=== PATIENT | female | born 1940 | race Caucasian/White ===

== ENCOUNTER 2019-10-28 12:41 | Emergency (ER) | payer MEDICARE, OTHER ==
[2019-10-28] MEDS ORDERED: Ketorolac Tromethamine 30 MG/ML VIAL ONE (13:26)
[2019-10-28 13:35] LABS: #Lymphocytes 1.2 thou/uL (1.20-3.40); #Monocytes 0.3 thou/uL (0.11-0.59); #Neutrophils 5.5 thou/uL (1.40-6.50); %Basophils 0.3 % (0.0-1.0); %Eosinophils 0.5 % (0.0-10.0); %Lymphocytes 17.1 % (21.0-51.0); %Monocytes 4.7 % (0.0-10.0); %Neutrophils 77.3 % (42.0-75.0); Hemoglobin 11.1 g/dL (12.0-16.0); Mean Corpuscular HGB CONC 32.9 g/dL (32.0-36.0); Mean Corpuscular Hemoglobin 30.6 pg (27.0-31.0); Mean Platelet Volume 8.5 fL (7.4-10.4); Platelet Count 225 thou/uL (130-400); RBC Distribution Width 12.3 % (11.5-14.5); Red Blood Cell (RBC) Count 3.62 mill/uL (4.20-5.40); White Blood Cell (WBC) Count 7.1 thou/uL (4.8-10.8)
--- NOTE | 2019-10-28 13:43 | CT ---
CT Stone Protocol 10/28/2019 1:03 PM HISTORY: Right-sided flank pain and nausea. COMPARISON: 10/19/2019 Technique: Multiple contiguous axial CT images are obtained through the abdomen and pelvis without IV contrast. Coronal reformats are provided. FINDINGS: This examination is limited for the evaluation of solid organs and vascular structures due to the lac k of intravenous contrast. Lower Chest: Bibasilar atelectasis is present. Abdomen: Liver: Grossly normal non-enhanced CT appearance. Gallbladder: Within normal limits for CT imaging. Pancreas: Grossly normal nonenhanced CT appearance. Spleen: Grossly normal nonenhanced CT appearance. Adrenals: Grossly normal nonenhanced CT appearance. Kidneys: There is moderate bilateral hydronephrosis which has increased when compared to the prior ex am. There is evidence of prominent dilatation of the right ureter on the prior exam which is again seen on this study, but there is been interval development of dilatation of the left ureter. There is perinephric stranding seen on the right as well as stranding adjacent to the right ureter which was not present on prior exam. Exact etiology for ureter obstruction is not evident on this exam. Ureters: Hydroureter present bilaterally greater on the right.. Pelvis: Urinary bladder: Urinary bladder is decompressed. Again noted is asymmetric wall thickening involving the anterior and right anterolateral aspect of the urinary bladder with inflammatory stranding seen anterior to the level of the urinary bladder. Reproductive Organs: No pelvic masses. Lymph Nodes: No enlarged lymph nodes. Bowel: Colonic diverticulosis present in the descending and sigmoid colon small amount retained fecal material seen throughout the colon. Loops of small bowel are normal in caliber. Appendix: Not visualized. However, there are no secondary signs to suggest appendicitis. Peritoneum: No free fluid, free air, or fluid collection. Retroperitoneum: Minimal fluid is seen on the right adjacent to the right ureter. Mild stranding is s een along the lateral aspect of the pelvic sidewalls bilaterally which is a stable finding. Vessels: Vascular calcifications are again seen in the abdominal aorta and iliac arteries.. Abdominal Wall: within normal limits. Bones: Degenerative changes are seen in the spine. Grade 1 anterolisthesis of L4 on L5 is again seen measuring 6 mm. Facet degenerative changes are present in the lower lumbar spine. IMPRESSION: 1. Moderate to severe bilateral hydroureteronephrosis to the level of the distal ureters. Right hydro nephrosis and ureteral dilatation was seen on the prior exam. However, the degree of hydronephrosis has increased bilaterally, and there is now dilatation of the left ureter. Etiology for ureteral obst ructions is not visualized on this exam. However, there is asymmetric wall thickening involving the urinary bladder with inflammatory stranding seen anterior to the urinary bladder. Findings again may be related to areas of scarring. Direct visualization is recommended. 2. No renal or ureteral calculi are seen bilaterally. 3. Colonic diverticulosis.
[2019-10-28 13:49] LABS: Bilirubin Negative (Negative); Blood, Urine Negative (Negative); Clarity Clear (Clear); Glucose, Urine (Dipstick) Normal (Negative); Leukocyte Negative Leu/uL (Negative); Nitrite Negative (Negative); Protein, Urine (Dipstick) Negative (Neg-Trace); Urobilinogen Normal mg/dL (Less than 2)
[2019-10-28] MEDS ORDERED: Ondansetron PF 4 MG/2 ML Vial ONE (13:53)
[2019-10-28 14:02] LABS: ALT (SGPT) 10 U/L (8-55); AST (SGOT) 15 U/L (5-34); Albumin 3.8 g/dL (3.4-4.8); Alkaline Phosphatase 44 U/L (40-110); Anion Gap 13 mmol/L (10-20); BUN (Urea Nitrogen) 23 mg/dL (9.8-20.1); Bilirubin, Total 0.4 mg/dL (0.2-1.2); Calc. Creatinine Clearance 0 mL/min (70-130); Calcium 9.6 mg/dL (7.8-10.44); Carbon Dioxide 26 mmol/L (23-31); Chloride 104 mmol/L (98-107); Estimated GFR-MDRD 39; Globulin 2.8 g/dL (2.4-3.5); Glucose 108 mg/dL (83-110); Potassium 3.9 mmol/L (3.5-5.1); Protein, Total 6.6 g/dL (6.0-8.3); Sodium 139 mmol/L (136-145)
[2019-10-28] MEDS ORDERED: Morphine 4 MG/ML VIAL ONE ×2 (15:06→16:07)
== END 2019-10-28 15:36 | disposition home or self-care (01) ==
LOC: ERS 12:41
DX: R10.9 Unspecified abdominal pain (principal); R11.0 Nausea; E78.5 Hyperlipidemia, unspecified; I10 Essential (primary) hypertension
CPT/HCPCS: 36415; 74176; 80053; 81003; 85025; 87086; 96374; 96375; 96376; J1885; J2270; J2405

== ENCOUNTER 2019-10-29 07:27 | Outpatient (CLI) | payer MEDICARE, OTHER ==
[2019-10-29 16:05] LABS: #Lymphocytes 2.1 thou/uL (1.20-3.40); #Monocytes 0.4 thou/uL (0.11-0.59); #Neutrophils 5.1 thou/uL (1.40-6.50); %Basophils 0.4 % (0.0-1.0); %Eosinophils 0.4 % (0.0-10.0); %Lymphocytes 26.7 % (21.0-51.0); %Monocytes 5.7 % (0.0-10.0); %Neutrophils 66.8 % (42.0-75.0); Hemoglobin 11.1 g/dL (12.0-16.0); Mean Corpuscular HGB CONC 33.1 g/dL (32.0-36.0); Mean Corpuscular Hemoglobin 30.9 pg (27.0-31.0); Mean Corpuscular Volume 93.2 fL (78.0-98.0); Mean Platelet Volume 9.1 fL (7.4-10.4); Platelet Count 225 thou/uL (130-400); RBC Distribution Width 12.4 % (11.5-14.5); White Blood Cell (WBC) Count 7.7 thou/uL (4.8-10.8)
[2019-10-29 16:11] LABS: PTT 28.4 SEC (22.9-36.1); Prothrombin Time 12.9 sec (12.0-14.7)
[2019-10-29 16:24] LABS: Anion Gap 15 mmol/L (10-20); BUN (Urea Nitrogen) 27 mg/dL (9.8-20.1); Calc. Creatinine Clearance 0 mL/min (70-130); Calcium 9.7 mg/dL (7.8-10.44); Carbon Dioxide 26 mmol/L (23-31); Chloride 103 mmol/L (98-107); Estimated GFR-MDRD 55; Glucose 89 mg/dL (83-110); Potassium 3.5 mmol/L (3.5-5.1); Sodium 140 mmol/L (136-145)
[2019-10-30 11:23] LABS: SARS-CoV-2 MS2 Positive; SARS-CoV-2 N Gene Negative; SARS-CoV-2 S Gene Negative; SARS-CoV-2 orf1ab Negative
== END 2019-10-29 07:28 | disposition home or self-care (01) ==
LOC: LABBT 07:27
PROVIDERS: ATTEND Urology
DX: Z20.828 Contact with and (suspected) exposure to other viral communicable diseases (principal)
CPT/HCPCS: 87635; U0003

== ENCOUNTER 2019-10-29 15:04 | Emergency (ER) | payer MEDICARE, OTHER ==
[2019-10-29] MEDS ORDERED: Ondansetron PF 4 MG/2 ML Vial ONE (15:51)
[2019-10-29 16:04] LABS: #Lymphocytes 1.6 thou/uL (1.20-3.40); #Monocytes 0.3 thou/uL (0.11-0.59); #Neutrophils 4.3 thou/uL (1.40-6.50); %Basophils 0.1 % (0.0-1.0); %Eosinophils 0.4 % (0.0-10.0); %Lymphocytes 25.4 % (21.0-51.0); %Monocytes 5.4 % (0.0-10.0); %Neutrophils 68.6 % (42.0-75.0); Hemoglobin 10.9 g/dL (12.0-16.0); Mean Corpuscular HGB CONC 32.8 g/dL (32.0-36.0); Mean Corpuscular Hemoglobin 30.4 pg (27.0-31.0); Mean Corpuscular Volume 92.9 fL (78.0-98.0); Mean Platelet Volume 8.6 fL (7.4-10.4); Platelet Count 216 thou/uL (130-400); RBC Distribution Width 12.4 % (11.5-14.5); Red Blood Cell (RBC) Count 3.58 mill/uL (4.20-5.40); White Blood Cell (WBC) Count 6.3 thou/uL (4.8-10.8)
[2019-10-29 16:34] LABS: ALT (SGPT) 11 U/L (8-55); AST (SGOT) 15 U/L (5-34); Albumin 3.8 g/dL (3.4-4.8); Alkaline Phosphatase 42 U/L (40-110); Anion Gap 13 mmol/L (10-20); BUN (Urea Nitrogen) 23 mg/dL (9.8-20.1); Bilirubin, Total 0.4 mg/dL (0.2-1.2); Calc. Creatinine Clearance 0 mL/min (70-130); Calcium 9.3 mg/dL (7.8-10.44); Carbon Dioxide 26 mmol/L (23-31); Chloride 102 mmol/L (98-107); Estimated GFR-MDRD 53; Globulin 2.9 g/dL (2.4-3.5); Glucose 92 mg/dL (83-110); Lipase 10 U/L (8-78); Potassium 3.3 mmol/L (3.5-5.1); Protein, Total 6.7 g/dL (6.0-8.3); Sodium 138 mmol/L (136-145)
[2019-10-29 19:46] LABS: Troponin I 0.039 ng/mL (< 0.028)
--- NOTE | 2019-10-31 16:09 | EKG ---
Test Reason : Blood Pressure : / mmHG Vent. Rate : 073 BPM Atrial Rate : 073 BPM P-R Int : 172 ms QRS Dur : 090 ms QT Int : 398 ms P-R-T Axes : 050 -07 025 degrees QTc Int : 438 ms Normal sinus rhythm Minimal voltage criteria for LVH, may be normal variant T wave abnormality, consider anterior ischemia Abnormal ECG Confirmed by ENDY GRAFF DO ([id number]), pictures editor DELFINA MEDRANO ([id number]) on 10/31/2019 4:09:08 PM Referred By: Confirmed By:ENDY GRAFF DO
== END 2019-10-29 20:20 | disposition home or self-care (01) ==
LOC: ERS 15:04
DX: R11.2 Nausea with vomiting, unspecified (principal); E78.5 Hyperlipidemia, unspecified; I10 Essential (primary) hypertension; Z79.899 Other long term (current) drug therapy; Z20.828 Contact with and (suspected) exposure to other viral communicable diseases
CPT/HCPCS: 80048; 80053; 82553; 83690; 84484 ×2; 85025; 85610; 85730; 93005; 96361; 96374; 99284; U0003; 36415; 87635; J2405

== ENCOUNTER 2019-10-31 08:25 | Day surgery (SDC) | payer MEDICARE ==
[2019-10-29 14:16] VITALS: BMI 26.6
[2019-10-31] MEDS ORDERED: Famotidine/PF 20 mg/2ml Vial ONE (12:04)
[2019-10-31] MEDS ORDERED: Fentanyl 100 MCG/2 ML VIAL ONE ×2 (12:04→14:23)
[2019-10-31] MEDS ORDERED: Iopamidol 50 ML FS ONE (12:16)
--- NOTE | 2019-10-31 14:01 | RAD ---
RETROGRADE IVP: 10/31/19 A total of 25 fluoroscopic images are presented from a retrograde study performed in the OR. INDICATIONS: Intraoperative imaging during retrograde pyelogram study. Stent placement. FINDINGS/IMPRESSION: These images show catheterization and opacification of both renal collecting structures. The final im ages shows a double pigtail right ureteral stent in place. Final image shows catheterization of the l eft ureter. POS: [facility]
[2019-10-31] MEDS ORDERED: PROPOFOL 200 MG/20 ML VIAL ONE (15:36)
[2019-10-31] MEDS ORDERED: Dexamethasone 20 MG/5 ML VIAL ONE (15:36)
[2019-10-31] MEDS ORDERED: Metoclopramide HCl 10 MG/2 ML VIAL ONE (15:36)
[2019-10-31] MEDS ORDERED: EPHEDRINE 25 MG/5 ML SYRINGE ONE (15:36)
[2019-10-31] MEDS ORDERED: Ondansetron PF 4 MG/2 ML Vial ONE (15:36)
[2019-10-31] MEDS ORDERED: Glycopyrrolate 0.2 MG/ML 5 ML SYRINGE ONE (15:36)
[2019-10-31] MEDS ORDERED: Lidocaine 1% PF 5 ML VIAL ONE (15:36)
[2019-10-31] MEDS ORDERED: Rocuronium Bromide 10 MG/ML (10ML VIAL) ONE (15:36)
--- NOTE | 2019-10-31 20:43 | OP ---
DATE OF PROCEDURE: 10/31/2019 PREOPERATIVE DIAGNOSIS: Bilateral hydronephrosis and bladder lesion. POSTOPERATIVE DIAGNOSIS: Bilateral hydronephrosis and bladder lesion. PROCEDURES PERFORMED: Cystoscopy, bilateral retrograde pyelography with bilateral stents, and transurethral resection of bladder tumor. ANESTHESIA: General. ESTIMATED BLOOD LOSS: Minimal. FINDINGS: Retrograde studies revealed bilateral hydronephrosis, right much worse than the left. The distal right ureters were tapered down just outside of what is most likely the intramural ureter. The right was very tortuous. She had a low extravasation as we injected contrast to fill out this tortuous ureter. I drained probably 30-40 mL of urine out of the system to send for cytology, the left I drained about 20. DRAINS PLACED: A 6 x 26 double-J stents bilaterally without strings attached. Her anterior wall extending along the right lateral wall was very edematous, did not look like obvious transitional cell and certainly not papillary, just very edematous and thickened. The tissue below this was very hard and indurated. Because of this, we actually sent some for frozen section. I have looked at that and appears to be a malignancy, but the organ of origin is uncertain. The bladder mucosa was difficult to see on the frozen section, so permanent tissue will be sent. A final pathology specimen will be given. Cauterization was done after taking the TURBT specimens. Love catheter was then inserted. She did have a bimanual exam done before we prepped and draped her initially and it revealed a firm three-dimensional mass of at least a few cm in size to be present in the pelvis. At the end of the procedure, she was taken out of the dorsal lithotomy position, awakened, extubated, and taken by stretcher to recovery room. Job ID: [id number]
--- NOTE | 2019-11-08 18:43 | PQF ---
[facility] POST DISCHARGE CLINICAL DOCUMENTATION IMPROVEMENT CLARIFICATION FORM l Todays Date: 11/07/19 l Patients Name MELISSA SEBASTIAN l l Admit Date 10/31/19 l Disch Date 10/31/19 Switch Operator Name Estephania Cr Email: [email or web address] Cell: [phone] To be completed by Switch Operator: Present Clinical Indicators - Signs / Symptoms Results and Location in Medical Record [ ] Documentation of: [ ] [ ] Documentation of: [ ] [ ] Documentation of: [ ] [ ] Documentation of: [ ] [ ] Risks [ ] [ ] [ ] Treatment [ ] Bladder tumor Query for size of resected bladder tumor (cm) [ ] [ ] To be completed by Physician: BIBI PUENTES The documentation in this patients record requires clarification to ensure coding compliance and accuracy. Check the appropriate box and include in your discharge summary. [ ] [ ] [ ] [ ] Please check this box if this does not apply to this patient [ ] Unable to determine [ ] Other diagnosis: Review the following information and exercise your independent professional judgment in responding to the clarification. Based upon the clinical findings, risk factors, and treatment, please clarify if you are treating one of the above probable or suspected diagnoses. Physician Signature: Date Time MTDD
== END 2019-10-31 15:35 | disposition home or self-care (01) ==
LOC: SDC 08:25
PROVIDERS: ATTEND Urology
PROC: 0T788DZ Dilation of Bilateral Ureters with Intraluminal Device, Via Natural or Artificial Opening Endoscopic (ICD-10-PCS; principal; 2019-10-31)
DX: C67.2 Malignant neoplasm of lateral wall of bladder (principal); N13.39 Other hydronephrosis; I10 Essential (primary) hypertension; R35.0 Frequency of micturition; Z79.899 Other long term (current) drug therapy; Z88.2 Allergy status to sulfonamides; Z88.5 Allergy status to narcotic agent
CPT/HCPCS: 52332; 74420; 88112; 88307; 88331; 88341; 88342; C1769; 88305; J0690; J1100; J2001; J2405; J2704; J2765; J3010; Q9967; S0028

== ENCOUNTER 2019-11-13 12:01 | Outpatient (CLI) | payer MEDICARE, OTHER ==
--- NOTE | 2019-11-13 13:22 | RAD ---
EXAM: Two views chest PROVIDED CLINICAL HISTORY: Preoperative evaluation. COMPARISON: None FINDINGS: Cardiac silhouette and pulmonary vasculature are within normal limits. The lungs are clear. The osse ous structures have a normal appearance. Vascular calcifications are seen in the thoracic aorta. Partial visualization of bilateral ureteral stents are seen in the upper abdomen. IMPRESSION: No acute cardiopulmonary process.
--- NOTE | 2019-11-13 19:34 | HP ---
HISTORY OF PRESENT ILLNESS: Dionne Bettencourt is a 79-year-old female, diagnosed with bladder cancer after developing UTI and seen by Dr. Cortez. I have been asked by Dr. Anthony to place a MediPort to facilitate chemotherapy access. The patient is retired tramadol and sulfa. MEDICATIONS: Lisinopril, , calcium, vitamin D3, and chondroitin. PAST SURGICAL HISTORY: Left modified radical mastectomy for breast cancer in 1983. PAST MEDICAL HISTORY: Elevated cholesterol. TOBACCO: None. ALCOHOL: Socially. FAMILY HISTORY: Noncontributory. REVIEW OF SYSTEMS: Noncontributory. PHYSICAL EXAMINATION: VITAL SIGNS: Weight 157 pounds, 5 feet 6 inches, blood pressure 133/61, heart rate 91, and temperature 98.8 degrees. HEAD, EARS, EYES, NOSE, AND THROAT: Unremarkable. LUNGS: Clear to auscultation. CARDIAC: Regular rate and rhythm without murmur or gallop. ABDOMEN: Soft and nontender. EXTREMITIES: Unremarkable. BREASTS: Status post left mastectomy. ASSESSMENT: Bladder cancer. PLAN: Placement of a MediPort. She understands risks and benefits and consents. Questions answered. Plan this under IV sedation, local anesthesia as an outpatient. Job ID: [id number]
[2019-11-14 10:56] LABS: SARS-CoV-2 MS2 Positive; SARS-CoV-2 N Gene Negative; SARS-CoV-2 S Gene Negative; SARS-CoV-2 orf1ab Negative
== END 2019-11-13 12:02 | disposition home or self-care (01) ==
LOC: LABBT 12:01
PROVIDERS: ATTEND Specialist
DX: Z01.818 Encounter for other preprocedural examination (principal); Z11.59 Encounter for screening for other viral diseases
CPT/HCPCS: 71046; 93005; U0003; 87635; 93010

== ENCOUNTER 2019-11-16 07:31 | Day surgery (SDC) | payer MEDICARE ==
[2019-11-13 12:31] VITALS: BMI 25.3
[2019-11-16] MEDS ORDERED: Bupivacaine PF 0.5% 30 ML VIAL ONE (08:36)
[2019-11-16] MEDS ORDERED: Sodium Chloride 0.9% 0 ML ONE (08:36)
[2019-11-16] MEDS ORDERED: Lidocaine 2% w/Epinephrine 1:200K 20 ML VIAL ONE (08:36)
[2019-11-16] MEDS ORDERED: Fentanyl 100 MCG/2 ML VIAL ONE (08:55)
[2019-11-16] MEDS ORDERED: Midazolam HCl 2 mg/2 ml Vial ONE (08:59)
--- NOTE | 2019-11-16 11:11 | RAD ---
PORTABLE CHEST 1 VIEW: Date: 11/16/2019 Time: 0959 hours HISTORY: MediPort placement. Recent diagnosis of bladder cancer. FINDINGS: There has been interval placement of a right-sided Port-A-Cath with tip in the projection of the SVC. The heart size is borderline. The aorta is tortuous. No focal areas of consolidation, pneumothoraces , or pleural effusions are seen. Right-sided Bochdalek's hernia, better seen on the CT scan of 2019, is visualized. IMPRESSION: No acute process. POS: [facility]
[2019-11-16] MEDS ORDERED: Lidocaine 1% PF 5 ML VIAL ONE (11:49)
[2019-11-16] MEDS ORDERED: PROPOFOL 200 MG/20 ML VIAL ONE (11:49)
--- NOTE | 2019-11-16 15:46 | OP ---
DATE OF PROCEDURE: 11/16/2019 PREOPERATIVE DIAGNOSES: 1. Bladder cancer. 2. Need of antineoplastic chemotherapy access. POSTOPERATIVE DIAGNOSES: 1. Bladder cancer. 2. Need of antineoplastic chemotherapy access. PROCEDURE PERFORMED: Right subclavian vein low-profile MediPort, PowerPort. ANESTHESIA: Intravenous sedation, local with 0.5% Marcaine 30 mL, mixed with 1% Xylocaine with epinephrine 20 mL, fluoroscopy used. DESCRIPTION OF PROCEDURE: The patient was taken to the operating room where under intravenous sedation, neck and chest were prepared with ChloraPrep and draped in routine fashion. Local anesthetic mixture was infiltrated in the skin and subcutaneous tissue about the operative site. Trocar cannulated the right subclavian vein. J-wire threaded. Trocar and catheter removed. Skin site was enlarged sharply. Subcutaneous pocket created, noting good hemostasis. Dilator and Peel-Away sheath were placed over the J wire onto the superior vena cava. Dilator and J-wire were removed. Catheter placed over the Peel-Away sheath. Peel-Away sheath was removed. The catheter tip under fluoroscopic visualization placed in the optimal position. Catheter was tailored to length, connected to the MediPort, placed in subcutaneous pocket, secured with 2 interrupted sutures of 3-0 Prolene. Subcutaneous tissue was approximated with 3-0 Monocryl, skin with subdermal 4-0 Monocryl and [place] glue applied. PowerPort accessed with a Moser needle, aspirated blood, flushed with heparinized saline solution. Final fluoroscopic images reveal good line and MediPort placement. Job ID: [id number]
== END 2019-11-16 11:34 | disposition home or self-care (01) ==
LOC: SDC 07:31
PROVIDERS: ATTEND Specialist
PROC: 02HV33Z Insertion of Infusion Device into Superior Vena Cava, Percutaneous Approach (ICD-10-PCS; principal; 2019-11-16)
DX: C67.2 Malignant neoplasm of lateral wall of bladder (principal); I10 Essential (primary) hypertension; M19.90 Unspecified osteoarthritis, unspecified site; Z79.899 Other long term (current) drug therapy; Z88.2 Allergy status to sulfonamides; Z88.5 Allergy status to narcotic agent
CPT/HCPCS: 36561; 71045; C1788; J0690; J1642; J2001; J2250; J2704; J3010; S0020

== ENCOUNTER 2019-12-24 05:50 | Day surgery (SDC) | payer MEDICARE ==
[2019-12-17 10:08] VITALS: BMI 24.8
[2019-12-24] MEDS ORDERED: Fentanyl 100 MCG/2 ML VIAL ONE (06:37)
[2019-12-24] MEDS ORDERED: Iothalamate Meglumine 60% 50 ML VIAL FS ONE (07:01)
--- NOTE | 2019-12-24 08:53 | RAD ---
Exam: Retrograde IVP Comparison 10/31/2019 FINDINGS: Single radiographic image demonstrates a right-sided ureteral stent, appropriately position ed. There is a left-sided ureteral stent, also appropriately positioned. There is opacification of the left intrarenal collecting system without significant calyceal dilatation. IMPRESSION: Intraprocedure fluoroscopy.
[2019-12-24] MEDS ORDERED: Ondansetron PF 4 MG/2 ML Vial ONE (11:24)
[2019-12-24] MEDS ORDERED: Lidocaine 1% PF 5 ML VIAL ONE (11:24)
[2019-12-24] MEDS ORDERED: Dexamethasone 20 MG/5 ML VIAL ONE (11:24)
[2019-12-24] MEDS ORDERED: PROPOFOL 200 MG/20 ML VIAL ONE (11:24)
[2019-12-24] MEDS ORDERED: EPHEDRINE 25 MG/5 ML SYRINGE ONE (11:24)
[2019-12-24] MEDS ORDERED: PHENYLEPHRINE-NS 100 MCG/ML 10 ML SYRINGE ONE (11:24)
--- NOTE | 2019-12-24 13:30 | OP ---
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 She has had stents placed a number weeks ago and has been undergoing chemotherapy in preparation for some point a cystectomy. She is due to start chemotherapy tomorrow. She could not do it last week because her counts were low, but her counts are not bad now. 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 POSTOPERATIVE DIAGNOSIS: Bilateral hydro with stents. PROCEDURES PERFORMED: Cystoscopy, removal of stents, bilateral retrogrades, bilateral stent replacement, and exam under anesthesia. SURGEON: Jono Cortez MD ANESTHESIA: General. ESTIMATED BLOOD LOSS: Minimal. DRAINS PLACED: 6 x 26 bilateral Polaris double-J stents. FINDINGS: The hydronephrosis on both sides is less than it was. There is still some tortuosity of the right ureter, requiring an angled Glidewire to manipulate it. The mass in the bladder is mobile. It does not feel fixed at all. I believe it feels smaller than it did. It is still a three-dimensional mass, however. DESCRIPTION OF PROCEDURE: After obtaining written and verbal consent from the patient after receiving IV antibiotics, she was taken to the operating suite. She was placed in a supine position on the treatment table. PlexiPulses were placed on lower extremities and turned on. She was given a general anesthetic and oral obturator intubation. She was sterilely prepped and draped for the above procedure and the C-arm was positioned over her for fluoroscopic guidance. The stents appeared to be in good position. Cystoscopy was performed with a 22-Luxembourger sheath. This was well lubricated, passed under direct vision through the female urethra into the urinary bladder. There was some necrotic bladder wall on the anterior region near the dome, which was where the resection had taken place, just had not healed. It did not look like there was a lot of tumor in this region, but most of her tumor actually had been outside of the confines of the bladder mucosa on her last resection. Stents were removed. Retrogrades were done bilaterally. 5-Luxembourger Pollack catheters and guidewires were replaced and a 6 x 26 Polaris double-J stents were replaced. The left side was done first and the right side was done. At the end of the procedure, the stent looked to be in good position. Of note is fact that when the stents were removed and contrast was injected to the retrograde study, there was good efflux bilaterally of the contrast into the bladder. After the procedure was completed, the bladder was drained, the instruments were removed, and exam under anesthesia was done. There was not any fixation to the pelvic sidewall. There was a 3-dimensional mass, I would guess probably 5 cm to 6 cm on palpation. At this point, she was taken out of dorsal lithotomy position, awakened, extubated, and taken by stretcher to recovery room. Job ID: [id number]
== END 2019-12-24 10:00 | disposition home or self-care (01) ==
LOC: SDC 05:50
PROVIDERS: ATTEND Urology
PROC: 0T788DZ Dilation of Bilateral Ureters with Intraluminal Device, Via Natural or Artificial Opening Endoscopic (ICD-10-PCS; principal; 2019-12-24)
PROC: 0TP98DZ Removal of Intraluminal Device from Ureter, Via Natural or Artificial Opening Endoscopic (ICD-10-PCS; 2019-12-24)
DX: N13.1 Hydronephrosis with ureteral stricture, not elsewhere classified (principal); C67.9 Malignant neoplasm of bladder, unspecified; I10 Essential (primary) hypertension; Z79.810 Long term (current) use of selective estrogen receptor modulators (SERMs); Z79.899 Other long term (current) drug therapy; Z88.2 Allergy status to sulfonamides; Z88.5 Allergy status to narcotic agent
CPT/HCPCS: 74420; J0690; J3010

== ENCOUNTER 2021-06-03 08:29 | Inpatient (IN) | payer MEDICARE ==
[2021-06-03] MEDS ORDERED: Ondansetron PF 4 MG/2 ML Vial ONE (08:56)
[2021-06-03 09:17] LABS: #Lymphocytes 1.2 thou/uL (1.20-3.40); #Monocytes 0.5 thou/uL (0.11-0.59); #Neutrophils 9.9 thou/uL (1.40-6.50); %Basophils 0.1 % (0.0-1.0); %Eosinophils 0.3 % (0.0-10.0); %Lymphocytes 10.1 % (21.0-51.0); %Monocytes 4.6 % (0.0-10.0); Hemoglobin 11.2 g/dL (12.0-16.0); Mean Corpuscular HGB CONC 34.6 g/dL (32.0-36.0); Mean Corpuscular Hemoglobin 30.6 pg (27.0-31.0); Mean Corpuscular Volume 88.5 fL (78.0-98.0); Mean Platelet Volume 6.8 fL (7.4-10.4); Platelet Count 508 thou/uL (130-400); RBC Distribution Width 12.1 % (11.5-14.5); Red Blood Cell (RBC) Count 3.65 mill/uL (4.20-5.40); White Blood Cell (WBC) Count 11.7 thou/uL (4.8-10.8)
[2021-06-03 09:33] LABS: Bilirubin Negative (Negative); Blood, Urine Trace (Negative); Glucose, Urine (Dipstick) Negative (Negative); Ketone, Urine Negative (Negative); Leukocyte Trace (Negative); Nitrite Negative (Negative); Protein, Urine (Dipstick) Trace mg/dL (Neg-Trace); Urobilinogen 0.2 mg/dL (Less than 2)
[2021-06-03 09:34] LABS: Clarity Hazy (Clear)
[2021-06-03 09:36] LABS: ALT (SGPT) 12 U/L (8-55); AST (SGOT) 14 U/L (5-34); Albumin 3.5 g/dL (3.4-4.8); Alkaline Phosphatase 63 U/L (40-110); Anion Gap 16 mmol/L (10-20); BUN (Urea Nitrogen) 38 mg/dL (9.8-20.1); Bilirubin, Total 0.4 mg/dL (0.2-1.2); Calc. Creatinine Clearance 0 mL/min (70-130); Calcium 9.8 mg/dL (7.8-10.44); Carbon Dioxide 23 mmol/L (23-31); Chloride 91 mmol/L (98-107); Globulin 3.6 g/dL (2.4-3.5); Glucose 146 mg/dL (83-110); Lipase 10 U/L (8-78); Magnesium 1.6 mg/dL (1.6-2.6); Protein, Total 7.1 g/dL (5.8-8.1); Sodium 126 mmol/L (136-145)
[2021-06-03 09:46] LABS: RBC/HPF 0-3 HPF (0-3); Squamous Epithelial 0-3 HPF (0-3)
[2021-06-03 09:47] LABS: Bacteria/HPF 2+ HPF (None Seen)
[2021-06-03] MEDS ORDERED: PROMETHAZINE HCL IVPB PRN (12:29)
[2021-06-03] MEDS ORDERED: ADMIXTURE FEE IVPB PRN (12:29)
[2021-06-03] MEDS ORDERED: SODIUM CHLORIDE IVPB PRN (12:29)
[2021-06-03] MEDS ORDERED: Promethazine HCl 25 MG/ML VIAL ONE (13:02)
[2021-06-03] MEDS ORDERED: cefTRIAXone\\ROCEPHIN 1 GM in Sodium Chloride 0.9% 100 ML IVPB SCH (13:15)
[2021-06-03] MEDS ORDERED: Pantoprazole 40 MG VIAL IVP SCH (13:15)
[2021-06-03] MEDS ORDERED: Sodium Chloride 0.9% 1,000 ML IV SCH (13:15)
[2021-06-03] MEDS: Ondansetron PF 4 MG/2 ML Vial IVP PRN (16:11)
[2021-06-03] MEDS: cefTRIAXone\\ROCEPHIN 1 GM in Sodium Chloride 0.9% 100 ML IVPB SCH (16:14)
[2021-06-03 16:42] VITALS: BMI 21.2
[2021-06-03 17:21] LABS: Anion Gap 16 mmol/L (10-20); BUN (Urea Nitrogen) 34 mg/dL (9.8-20.1); Calc. Creatinine Clearance 23 mL/min (70-130); Calcium 8.8 mg/dL (7.8-10.44); Carbon Dioxide 20 mmol/L (23-31); Chloride 97 mmol/L (98-107); Glucose 105 mg/dL (83-110); Potassium 4.1 mmol/L (3.5-5.1); Sodium 129 mmol/L (136-145)
[2021-06-03] MEDS: Heparin 5,000 UNITS/ML VIAL SC SCH ×2 (17:21→21:45)
[2021-06-03] MEDS: Sodium Chloride 0.9% 1,000 ML IV SCH (21:46)
[2021-06-03] MEDS: Pantoprazole 40 MG VIAL IVP SCH (21:46)
[2021-06-04] MEDS ORDERED: Melatonin 3 MG TAB PO SCH (00:18)
[2021-06-04] MEDS: Sodium Chloride 0.9% 1,000 ML IV SCH ×2 (06:11→19:26)
[2021-06-04 07:19] LABS: #Eosinphils 0.1 thou/uL (0.0-0.7); #Lymphocytes 1.7 thou/uL (1.20-3.40); #Monocytes 0.5 thou/uL (0.11-0.59); #Neutrophils 5.7 thou/uL (1.40-6.50); %Basophils 0.2 % (0.0-1.0); %Lymphocytes 21.6 % (21.0-51.0); %Neutrophils 71.3 % (42.0-75.0); Hemoglobin 10.6 g/dL (12.0-16.0); Mean Corpuscular HGB CONC 32.4 g/dL (32.0-36.0); Mean Corpuscular Hemoglobin 29.6 pg (27.0-31.0); Mean Corpuscular Volume 91.2 fL (78.0-98.0); Mean Platelet Volume 7.3 fL (7.4-10.4); Platelet Count 501 thou/uL (130-400); RBC Distribution Width 12.3 % (11.5-14.5); Red Blood Cell (RBC) Count 3.58 mill/uL (4.20-5.40); White Blood Cell (WBC) Count 7.9 thou/uL (4.8-10.8)
[2021-06-04] MEDS: Heparin 5,000 UNITS/ML VIAL SC SCH ×3 (07:41→21:09)
[2021-06-04 07:49] LABS: Anion Gap 17 mmol/L (10-20); BUN (Urea Nitrogen) 31 mg/dL (9.8-20.1); Calc. Creatinine Clearance 26 mL/min (70-130); Calcium 8.8 mg/dL (7.8-10.44); Carbon Dioxide 21 mmol/L (23-31); Chloride 101 mmol/L (98-107); Glucose 86 mg/dL (83-110); Potassium 4.6 mmol/L (3.5-5.1); Sodium 134 mmol/L (136-145)
[2021-06-04] MEDS: Pantoprazole 40 MG VIAL IVP SCH ×2 (08:31→21:10)
[2021-06-04 11:27] LABS: SARS-CoV-2 PCR by NAA Not Detected (NotDetected)
[2021-06-04] MEDS: cefTRIAXone\\ROCEPHIN 1 GM in Sodium Chloride 0.9% 100 ML IVPB SCH (15:11)
[2021-06-04] MEDS: Ondansetron PF 4 MG/2 ML Vial IVP PRN (19:30)
[2021-06-04] MEDS ORDERED: Melatonin 3 MG TAB PO PRN (20:56)
[2021-06-05] MEDS: Pantoprazole 40 MG VIAL IVP SCH ×2 (08:31→21:26)
[2021-06-05] MEDS: Heparin 5,000 UNITS/ML VIAL SC SCH ×3 (08:31→21:26)
[2021-06-05 09:19] LABS: #Eosinphils 0.1 thou/uL (0.0-0.7); #Lymphocytes 1.3 thou/uL (1.20-3.40); #Monocytes 0.5 thou/uL (0.11-0.59); #Neutrophils 4.4 thou/uL (1.40-6.50); %Basophils 0.4 % (0.0-1.0); %Eosinophils 1.3 % (0.0-10.0); %Lymphocytes 20.2 % (21.0-51.0); %Monocytes 7.9 % (0.0-10.0); %Neutrophils 70.1 % (42.0-75.0); Hemoglobin 9.2 g/dL (12.0-16.0); Mean Corpuscular HGB CONC 33.5 g/dL (32.0-36.0); Mean Corpuscular Hemoglobin 30.7 pg (27.0-31.0); Mean Corpuscular Volume 91.7 fL (78.0-98.0); Mean Platelet Volume 7.3 fL (7.4-10.4); Platelet Count 402 thou/uL (130-400); RBC Distribution Width 12.4 % (11.5-14.5); Red Blood Cell (RBC) Count 2.98 mill/uL (4.20-5.40); White Blood Cell (WBC) Count 6.3 thou/uL (4.8-10.8)
[2021-06-05 09:35] LABS: Anion Gap 13 mmol/L (10-20); BUN (Urea Nitrogen) 25 mg/dL (9.8-20.1); Calc. Creatinine Clearance 41 mL/min (70-130); Calcium 8.7 mg/dL (7.8-10.44); Carbon Dioxide 18 mmol/L (23-31); Chloride 107 mmol/L (98-107); Glucose 110 mg/dL (83-110); Sodium 134 mmol/L (136-145)
[2021-06-05] MEDS: Sodium Chloride 0.9% 1,000 ML IV SCH (12:48)
[2021-06-05] MEDS: cefTRIAXone\\ROCEPHIN 1 GM in Sodium Chloride 0.9% 100 ML IVPB SCH (16:22)
[2021-06-05] MEDS: Ondansetron PF 4 MG/2 ML Vial IVP PRN (18:23)
[2021-06-06] MEDS: Sodium Chloride 0.9% 1,000 ML IV SCH ×2 (06:16→19:58)
[2021-06-06 06:58] LABS: #Eosinphils 0.1 thou/uL (0.0-0.7); #Lymphocytes 1.4 thou/uL (1.20-3.40); #Monocytes 0.5 thou/uL (0.11-0.59); #Neutrophils 4.2 thou/uL (1.40-6.50); %Basophils 0.6 % (0.0-1.0); %Eosinophils 1.8 % (0.0-10.0); %Lymphocytes 22.7 % (21.0-51.0); %Monocytes 7.2 % (0.0-10.0); %Neutrophils 67.7 % (42.0-75.0); Hemoglobin 9.1 g/dL (12.0-16.0); Mean Corpuscular HGB CONC 34.4 g/dL (32.0-36.0); Mean Corpuscular Hemoglobin 31.3 pg (27.0-31.0); Mean Corpuscular Volume 91.2 fL (78.0-98.0); Mean Platelet Volume 7.3 fL (7.4-10.4); Platelet Count 369 thou/uL (130-400); RBC Distribution Width 12.3 % (11.5-14.5); Red Blood Cell (RBC) Count 2.89 mill/uL (4.20-5.40); White Blood Cell (WBC) Count 6.2 thou/uL (4.8-10.8)
[2021-06-06 07:16] LABS: Anion Gap 12 mmol/L (10-20); BUN (Urea Nitrogen) 18 mg/dL (9.8-20.1); Calc. Creatinine Clearance 51 mL/min (70-130); Calcium 8.3 mg/dL (7.8-10.44); Carbon Dioxide 19 mmol/L (23-31); Chloride 109 mmol/L (98-107); Glucose 103 mg/dL (83-110); Potassium 3.7 mmol/L (3.5-5.1); Sodium 136 mmol/L (136-145)
[2021-06-06] MEDS: Pantoprazole 40 MG VIAL IVP SCH ×2 (08:28→19:54)
[2021-06-06] MEDS: Ondansetron PF 4 MG/2 ML Vial IVP PRN ×2 (08:28→23:35)
[2021-06-06] MEDS: Heparin 5,000 UNITS/ML VIAL SC SCH ×3 (08:28→19:54)
[2021-06-06] MEDS: cefTRIAXone\\ROCEPHIN 1 GM in Sodium Chloride 0.9% 100 ML IVPB SCH (15:56)
[2021-06-07 06:49] LABS: #Eosinphils 0.2 thou/uL (0.0-0.7); #Lymphocytes 1.2 thou/uL (1.20-3.40); #Monocytes 0.4 thou/uL (0.11-0.59); #Neutrophils 3.7 thou/uL (1.40-6.50); %Basophils 0.4 % (0.0-1.0); %Eosinophils 2.8 % (0.0-10.0); %Lymphocytes 22.4 % (21.0-51.0); %Monocytes 7.1 % (0.0-10.0); %Neutrophils 67.3 % (42.0-75.0); Hemoglobin 9.5 g/dL (12.0-16.0); Mean Corpuscular HGB CONC 34.1 g/dL (32.0-36.0); Mean Corpuscular Hemoglobin 31.2 pg (27.0-31.0); Mean Corpuscular Volume 91.7 fL (78.0-98.0); Mean Platelet Volume 6.7 fL (7.4-10.4); Platelet Count 386 thou/uL (130-400); RBC Distribution Width 12.4 % (11.5-14.5); Red Blood Cell (RBC) Count 3.03 mill/uL (4.20-5.40); White Blood Cell (WBC) Count 5.4 thou/uL (4.8-10.8)
[2021-06-07 07:10] LABS: Anion Gap 10 mmol/L (10-20); BUN (Urea Nitrogen) 11 mg/dL (9.8-20.1); Calc. Creatinine Clearance 47 mL/min (70-130); Calcium 8.8 mg/dL (7.8-10.44); Carbon Dioxide 24 mmol/L (23-31); Chloride 108 mmol/L (98-107); Glucose 100 mg/dL (83-110); Potassium 3.9 mmol/L (3.5-5.1); Sodium 138 mmol/L (136-145)
[2021-06-07] MEDS: Heparin 5,000 UNITS/ML VIAL SC SCH ×3 (08:46→19:57)
[2021-06-07] MEDS: Pantoprazole 40 MG VIAL IVP SCH ×2 (08:46→20:13)
[2021-06-07] MEDS: cefTRIAXone\\ROCEPHIN 1 GM in Sodium Chloride 0.9% 100 ML IVPB SCH (17:58)
[2021-06-07] MEDS: Sodium Chloride 0.9% 1,000 ML IV SCH ×2 (17:58→22:15)
[2021-06-07] MEDS: Ondansetron PF 4 MG/2 ML Vial IVP PRN (20:27)
[2021-06-08] MEDS: Sodium Chloride 0.9% 1,000 ML IV SCH ×2 (04:52→13:30)
[2021-06-08 06:12] LABS: #Basophils 0.1 thou/uL (0.0-0.2); #Eosinphils 0.1 thou/uL (0.0-0.7); #Lymphocytes 1.3 thou/uL (1.20-3.40); #Monocytes 0.4 thou/uL (0.11-0.59); %Basophils 0.8 % (0.0-1.0); %Eosinophils 0.9 % (0.0-10.0); %Lymphocytes 18.7 % (21.0-51.0); %Monocytes 5.7 % (0.0-10.0); %Neutrophils 73.9 % (42.0-75.0); Hemoglobin 9.1 g/dL (12.0-16.0); Mean Corpuscular Volume 91.1 fL (78.0-98.0); Platelet Count 377 thou/uL (130-400); RBC Distribution Width 12.6 % (11.5-14.5); Red Blood Cell (RBC) Count 2.92 mill/uL (4.20-5.40); White Blood Cell (WBC) Count 6.8 thou/uL (4.8-10.8)
[2021-06-08 06:38] LABS: BUN (Urea Nitrogen) 8 mg/dL (9.8-20.1); Calc. Creatinine Clearance 54 mL/min (70-130); Calcium 8.3 mg/dL (7.8-10.44); Carbon Dioxide 22 mmol/L (23-31); Chloride 109 mmol/L (98-107); Glucose 85 mg/dL (83-110); Potassium 3.5 mmol/L (3.5-5.1); Sodium 138 mmol/L (136-145)
[2021-06-08 06:43] LABS: Anion Gap 11 mmol/L (10-20)
[2021-06-08] MEDS: Ondansetron PF 4 MG/2 ML Vial IVP PRN ×2 (08:38→14:41)
[2021-06-08] MEDS: Heparin 5,000 UNITS/ML VIAL SC SCH ×2 (08:39→15:20)
[2021-06-08] MEDS: Pantoprazole 40 MG VIAL IVP SCH (08:39)
[2021-06-08 11:52] VITALS: BP 150/70; TEMP 98.5
== END 2021-06-08 15:14 | disposition home or self-care (01) | DRG 389 ==
LOC: ERS 08:29 → T4-B 12:26
PROVIDERS: ADMIT Internal Medicine; ATTEND Internal Medicine
PROC: 0D9670Z Drainage of Stomach with Drainage Device, Via Natural or Artificial Opening (ICD-10-PCS; principal; 2021-06-07)
DX: K56.609 Unspecified intestinal obstruction, unspecified as to partial versus complete obstruction (principal); N17.9 Acute kidney failure, unspecified; E87.1 Hypo-osmolality and hyponatremia; N39.0 Urinary tract infection, site not specified; N13.30 Unspecified hydronephrosis; E03.9 Hypothyroidism, unspecified; E78.00 Pure hypercholesterolemia, unspecified; E86.0 Dehydration; D64.9 Anemia, unspecified; Z20.822 Contact with and (suspected) exposure to COVID-19; I10 Essential (primary) hypertension; E78.5 Hyperlipidemia, unspecified; Z85.3 Personal history of malignant neoplasm of breast; Z88.5 Allergy status to narcotic agent; Z85.51 Personal history of malignant neoplasm of bladder; Z88.2 Allergy status to sulfonamides; Z90.710 Acquired absence of both cervix and uterus; Z79.899 Other long term (current) drug therapy
CPT/HCPCS: 36415; 74018; 74176; 74177; 80048; 80053; 81003; 81015; 83605; 83690; 83735; 84443; 85025; 87086; 93005; 94760; 96374; 96375; C9113; J0696; J1644; J2405; J2550; J3490; J7050; U0003; U0005